=== PATIENT | male | born 1975 | race Caucasian/White ===

== ENCOUNTER 2016-06-26 17:27 | Inpatient (IN) | payer MEDICAID, OTHER ==
[~2016-06-26] VITALS: Ht 160 cm; Wt 93.6 kg
[~2016-06-26 17:27] MED LIST: BACL10TA PO; BENZ0.5T6 PO; DIVA500T35 PO; DOCU250C91 PO; DULO20CA30 PO; GABA-531 PO; MET500 PO; OMEP20 PO
[2016-06-26] MEDS ORDERED: ARIP5TAB9 PO (17:37)
[2016-06-26 17:52] LABS: BASOPHILS # (AUTO) 0.05 K/uL (0.00-0.20); BASOPHILS % (AUTO) 0.8 % (0.0-2.0); EOSINOPHILS # (AUTO) 0.18 K/uL (0.00-0.70); EOSINOPHILS % (AUTO) 2.72 % (1.0-6.0); HEMATOCRIT 43.4 % (41-53); HEMOGLOBIN 14.4 g/dL (13.5-17.5); LYMPHOCYTES # (AUTO) 2.3 K/uL (1.0-4.8); LYMPHOCYTES % (AUTO) 34.8 % (22.0-44.0); MEAN CORPUSCULAR HGB CONC 33.3 G/dL (31.0-37.0); MEAN CORPUSCULAR VOLUME 90 fL (80-100); MONOCYTES # (AUTO) 0.4 K/uL (0.1-1.0); MONOCYTES % (AUTO) 6.2 % (2.0-9.0); NEUTROPHILS # (AUTO) 3.6 K/uL (1.8-7.7); NEUTROPHILS % (AUTO) 55.5 % (40.0-70.0); PLATELET COUNT (AUTO) 211 K/uL (150-450); RED BLOOD CELL COUNT(AUTO) 4.81 MIL/uL (4.50-5.90); RED CELL DISTRIBUTION WIDTH 14.6 % (11.5-14.5); WHITE BLOOD COUNT (AUTO) 6.5 K/uL (4.5-11.0)
[2016-06-26 18:02] LABS: ANION GAP 5 mmol/L (8-16); CALCIUM, TOTAL 8.4 mg/dL (8.8-10.5); CARBON DIOXIDE 29 mmol/L (22-29); CHLORIDE 108 mmol/L (98-107); CREATININE 0.63 mg/dL (0.60-1.30); GLOMERULAR FILTR. RATE CALC > 60 mL/min (>60); POTASSIUM 3.8 mmol/L (3.5-5.1); SODIUM SERUM 142 mmol/L (136-145); UREA NITROGEN, BLOOD 32 mg/dL (7-18)
[2016-06-26 18:08] LABS: ALANINE AMINOTRANSFERASE 28 U/L (12-78); ASPARTATE AMINOTRANSFERASE 12 U/L (15-37); BILIRUBIN,TOTAL 0.1 mg/dL (0.1-1.0); TOTAL PROTEIN, SERUM 6.7 g/dL (6.4-8.2)
[2016-06-26] MEDS ORDERED: DiphenhydrAMINE HCL 50 MG CAPSULE PO ONE (20:45)
[2016-06-26] MEDS ORDERED: HALOPERIDOL 5 MG TABLET PO ONE (20:45)
[2016-06-26] MEDS ORDERED: LORazepam 2 MG TABLET PO ONE (20:45)
[2016-06-26] MEDS ORDERED: IBUPROFEN 600 MG TABLET PO ONE (22:30)
[2016-06-26] MEDS: GABAPENTIN 300 MG CAPSULE PO SCH (23:49)
[2016-06-26] MEDS: ZOLPIDEM TARTRATE 10 MG TABLET PO PRN (23:49)
[2016-06-26] MEDS: DIVALPROEX SODIUM 500 MG DR TABLET PO SCH (23:49)
[2016-06-27] MEDS: HALOPERIDOL 5 MG TABLET PO PRN ×2 (02:04→10:53)
[2016-06-27] MEDS: LORazepam 2 MG TABLET PO PRN ×2 (02:04→10:53)
[2016-06-27] MEDS ORDERED: KETOROLAC TROMETHAMINE 60 MG/2 ML VIAL IM ONE (02:15)
[2016-06-27] MEDS: GABAPENTIN 300 MG CAPSULE PO SCH ×3 (08:24→20:36)
[2016-06-27] MEDS: DIVALPROEX SODIUM 500 MG DR TABLET PO SCH ×2 (08:24→20:35)
[2016-06-27] MEDS: ARIPiprazole 5 MG TABLET PO SCH (08:24)
[2016-06-27] MEDS: DULoxetine HCL 60 MG CAPSULE PO SCH (08:24)
[2016-06-27] MEDS ORDERED: GABAPENTIN 300 MG CAPSULE PO SCH (09:00)
[2016-06-27] MEDS ORDERED: DIVALPROEX SODIUM 500 MG DR TABLET PO SCH (09:00)
[2016-06-27] MEDS ORDERED: BACL10TA PO (14:35)
[2016-06-27] MEDS ORDERED: DANT25 PO (14:35)
[2016-06-27] MEDS ORDERED: BENZ0.5T6 PO (14:35)
[2016-06-27] MEDS ORDERED: HYDR-309 PO (14:35)
[2016-06-27] MEDS ORDERED: TOPI25 PO (14:35)
[2016-06-27] MEDS ORDERED: CARDIZEM TP (14:35)
[2016-06-27] MEDS ORDERED: MENT3.5O TP (14:35)
[2016-06-27] MEDS ORDERED: GABA-533 PO (14:35)
[2016-06-27] MEDS ORDERED: THIA100 PO (14:35)
[2016-06-27] MEDS ORDERED: FURO40 PO (14:35)
[2016-06-27] MEDS ORDERED: VIST50 PO (14:35)
[2016-06-27] MEDS ORDERED: ARIP15TA3 PO (14:35)
[2016-06-27] MEDS ORDERED: BENZ1TAB10 PO (14:35)
[2016-06-27] MEDS ORDERED: DULO60CA44 PO (18:07)
[2016-06-27] MEDS ORDERED: INFLUENZA VIRUS VACCINE QVS 2016-17 (3YR+)/PF 60 MCG/0.5 ML SYRINGE IM ONE (18:15)
[2016-06-27 18:27] VITALS: BP 109/81
[2016-06-28 01:34] VITALS: BP 122/68
[2016-06-28] MEDS: IBUPROFEN 600 MG TABLET PO PRN ×2 (01:39→12:52)
[2016-06-28] MEDS: LORazepam 2 MG TABLET PO PRN (04:50)
[2016-06-28 08:30] VITALS: BP 132/84
[2016-06-28] MEDS: NICOTINE 21 MG/24 HOUR PATCH TD SCH (09:00)
[2016-06-28] MEDS: ARIPiprazole 5 MG TABLET PO SCH (09:18)
[2016-06-28] MEDS: GABAPENTIN 300 MG CAPSULE PO SCH ×3 (09:19→16:04)
[2016-06-28] MEDS: DIVALPROEX SODIUM 500 MG DR TABLET PO SCH ×2 (09:19→16:04)
[2016-06-28] MEDS: DULoxetine HCL 60 MG CAPSULE PO SCH (09:20)
[2016-06-28] MEDS ORDERED: BACITRACIN 28.4 GM OINTMENT TP PRN (10:45)
[2016-06-28] MEDS ORDERED: PETROLATUM,WHITE 71 GM JELLY TP PRN (10:45)
[2016-06-28] MEDS ORDERED: CloNIDine HCL 0.1 MG TABLET PO PRN (10:45)
[2016-06-28] MEDS ORDERED: MAG HYDROX/AL HYDROX/SIMETH ES 30 ML SUSPENSION UDCUP PO PRN (10:45)
[2016-06-28] MEDS ORDERED: LOPERAMIDE HCL 2 MG CAPSULE PO PRN (10:45)
[2016-06-28] MEDS ORDERED: MAGNESIUM HYDROXIDE SUSPENSION 30 ML UDCUP PO PRN (10:45)
[2016-06-28] MEDS ORDERED: ALBUTEROL SULFATE HFA 90 MCG/PUFF 8 GM INHALER IH PRN (10:45)
[2016-06-28] MEDS ORDERED: ONDANSETRON HCL 4 MG TABLET PO PRN (10:45)
[2016-06-28] MEDS ORDERED: BENZOCAINE/MENTHOL LOZENGE [8 LOZENGES/PACKET] MM PRN (11:00)
[2016-06-28 16:00] VITALS: BP 148/99
[2016-06-29] MEDS: ZOLPIDEM TARTRATE 10 MG TABLET PO PRN ×2 (00:50→23:10)
[2016-06-29] MEDS: LORazepam 2 MG TABLET PO PRN (04:30)
[2016-06-29] MEDS: ARIPiprazole 5 MG TABLET PO SCH (08:34)
[2016-06-29] MEDS: DULoxetine HCL 60 MG CAPSULE PO SCH (08:34)
[2016-06-29] MEDS: GABAPENTIN 300 MG CAPSULE PO SCH ×3 (08:35→16:20)
[2016-06-29] MEDS: DIVALPROEX SODIUM 500 MG DR TABLET PO SCH ×2 (08:35→16:20)
[2016-06-29] MEDS: OMEPRAZOLE 20 MG CAPSULE PO SCH (08:36)
[2016-06-29 08:40] VITALS: BP 128/78
[2016-06-29] MEDS: IBUPROFEN 600 MG TABLET PO PRN ×2 (08:40→18:54)
[2016-06-29] MEDS: DOCUSATE SODIUM 100 MG CAPSULE PO SCH (08:41)
[2016-06-29] MEDS: NICOTINE 21 MG/24 HOUR PATCH TD SCH (08:42)
[2016-06-29] MEDS ORDERED: DSS100 PO (14:44)
[2016-06-29] MEDS ORDERED: DIVA500T35 PO (14:44)
[2016-06-29] MEDS ORDERED: ARIP5TAB9 PO (14:44)
[2016-06-29] MEDS ORDERED: OMEP20 PO (14:44)
[2016-06-29] MEDS ORDERED: GABA-531 PO (14:44)
[2016-06-29 16:40] VITALS: BP 128/73
[2016-06-29 18:55] VITALS: BP 127/69
[2016-06-30] VITALS (7 sets, daily range): BP systolic 113–159; BP diastolic 65–100
[2016-06-30] MEDS: LORazepam 2 MG TABLET PO PRN ×2 (00:26→20:05)
[2016-06-30] MEDS: ACETAMINOPHEN 325 MG TABLET PO PRN ×2 (01:28→09:57)
[2016-06-30] MEDS: IBUPROFEN 600 MG TABLET PO PRN ×2 (05:29→16:34)
[2016-06-30] MEDS: DOCUSATE SODIUM 100 MG CAPSULE PO SCH (09:00)
[2016-06-30] MEDS: NICOTINE 21 MG/24 HOUR PATCH TD SCH (09:00)
[2016-06-30] MEDS: OMEPRAZOLE 20 MG CAPSULE PO SCH (09:23)
[2016-06-30] MEDS: ARIPiprazole 5 MG TABLET PO SCH (09:23)
[2016-06-30] MEDS: DIVALPROEX SODIUM 500 MG DR TABLET PO SCH ×2 (09:23→16:34)
[2016-06-30] MEDS: DULoxetine HCL 60 MG CAPSULE PO SCH (09:24)
[2016-06-30] MEDS: GABAPENTIN 300 MG CAPSULE PO SCH ×3 (09:29→16:34)
[2016-06-30] MEDS: CEPHALEXIN MONOHYDRATE 500 MG CAPSULE PO SCH (16:34)
[2016-06-30] MEDS: ZOLPIDEM TARTRATE 10 MG TABLET PO PRN (21:27)
[2016-07-01 00:52] VITALS: BP 125/78
[2016-07-01] MEDS: IBUPROFEN 600 MG TABLET PO PRN ×2 (00:54→10:38)
[2016-07-01] MEDS: LORazepam 2 MG TABLET PO PRN (02:41)
[2016-07-01 08:00] VITALS: BP 120/69
[2016-07-01] MEDS: NICOTINE 21 MG/24 HOUR PATCH TD SCH (09:00)
[2016-07-01] MEDS: GABAPENTIN 300 MG CAPSULE PO SCH ×2 (09:05→12:38)
[2016-07-01] MEDS: CEPHALEXIN MONOHYDRATE 500 MG CAPSULE PO SCH ×2 (09:05→12:38)
[2016-07-01] MEDS: ARIPiprazole 5 MG TABLET PO SCH (09:05)
[2016-07-01] MEDS: DULoxetine HCL 60 MG CAPSULE PO SCH (09:05)
[2016-07-01] MEDS: OMEPRAZOLE 20 MG CAPSULE PO SCH (09:08)
[2016-07-01] MEDS: DOCUSATE SODIUM 100 MG CAPSULE PO SCH (09:08)
[2016-07-01] MEDS: DIVALPROEX SODIUM 500 MG DR TABLET PO SCH (09:08)
[2016-07-01] MEDS ORDERED: CEPH500 PO (10:51)
== END 2016-07-01 13:30 | disposition home or self-care (01) | DRG 750 ==
LOC: EMS 17:30 → 3EI 06-27 15:58
PROVIDERS: ADMIT Psychiatry & Neurology Psychiatry; ATTEND Psychiatry & Neurology Psychiatry
DX: F25.9 Schizoaffective disorder, unspecified (principal); G82.20 Paraplegia, unspecified; R45.851 Suicidal ideations; F31.2 Bipolar disorder, current episode manic severe with psychotic features; Q07.01 Arnold-Chiari syndrome with spina bifida; N31.9 Neuromuscular dysfunction of bladder, unspecified; K21.9 Gastro-esophageal reflux disease without esophagitis; K59.00 Constipation, unspecified; G47.00 Insomnia, unspecified; Z98.890 Other specified postprocedural states; Z88.2 Allergy status to sulfonamides; Z88.5 Allergy status to narcotic agent; Z88.1 Allergy status to other antibiotic agents; Z99.3 Dependence on wheelchair; Z91.14 Patient's other noncompliance with medication regimen; Z28.21 Immunization not carried out because of patient refusal
CPT/HCPCS: 96372; 99285; 99406; G0480; J1885; Q0162